=== PATIENT | female | born 1955 | race Caucasian/White ===

== ENCOUNTER → 2018-03-06 10:47 | Outpatient (CLI) | payer MEDICARE, OTHER, SELFPAY ==
--- NOTE | 2018-03-06 10:52 | CA_ITS ---
PROCEDURE: 2-D M-mode and color Doppler study INDICATIONS FOR THE TEST: Chest pain COPD Heart MurmurX Tobacco Smoking Palpitations Fatigue Syncope Edema HypertensionXDiabetes Mellitus Rheumatic Fever SOB GIMENEZ Obesity Hyperlipidemia Family History HD Additional History LIMITED STUDY PT UNABLE TO LAY ON L SIDE FOR EXAM PATIENT INFORMATION HEIGHT: 70 WEIGHT:203 GENDER: Female B/P:126/80 2-D/M-MODE INTERPRETATION: 2-D MEASUREMENTS OBSERVED VALUES IN CMS Right Ventricular Dimension (RVDd) 1.0 Interventricular Septum (Thickness)(IVsd) 2.2 Left Ventricular Internal Dimensions(LVIDd) 3.1 Left Ventricular Posterior Wall (Thickness)(LVPWd) 1.7 Aortic Root 3.0 Aortic Cusp Separation 1.3 Left Atrial Dimensions (LAD) 2.3 2D 1. Technically difficult study because of the patient's factor and poor acoustic windows 2. The left atrium is mildly enlarged, left ventricle is normal size, there is mild concentric left ventricular hypertrophy, visually estimated ejection fraction 60-65% with no obvious regional wall motion abnormality. 3. The right atrium and right ventricle are normal size and contractility. 4. The aortic valve is minimally thickened and fibrosed. 5. The mitral and tricuspid valve acoustic normal. 6. No significant pericardial effusion noted. DOPPLER INTERROGATION: Doppler interrogation of the aortic, mitral and tricuspid valvular presence of mild mitral and tricuspid regurgitation, tricuspid and jet velocity insufficient for calculation of the right ventricular systolic pressure, diastolic parameters are inconclusive. CONCLUSION: 1. Normal left ventricular size, preserved left ventricular systolic function, visually estimated ejection fraction of 60-65% with no obvious regional wall motion abnormality, diastolic parameters are inconclusive. 2. Mild mitral and tricuspid regurgitation 3. No significant pericardial effusion noted.
== END ==
PROVIDERS: Family Provider Family Medicine; PCP Family Medicine; Visit Provider Family Medicine
DX: R01.1 Cardiac murmur, unspecified (principal)
CPT/HCPCS: 93306

== ENCOUNTER → 2020-05-27 16:09 | Outpatient (CLI) | payer MEDICARE, MEDICAID, SELFPAY | PROVIDERS: Visit Provider Urology | DX: N30.10 Interstitial cystitis (chronic) without hematuria (principal) | CPT/HCPCS: 87086 ==

== ENCOUNTER → 2020-06-06 11:00 | Outpatient (CLI) | payer MEDICARE, MEDICAID, SELFPAY ==
[2020-06-06 14:24] LABS: Coronavirus 19 IgG Antibody Negative (Negative); Coronavirus 19 IgM Antibody Negative (Negative)
== END ==
PROVIDERS: Visit Provider Urology
DX: R32 Unspecified urinary incontinence (principal); Z01.818 Encounter for other preprocedural examination
CPT/HCPCS: 36415; 86328

== ENCOUNTER 2020-06-09 07:38 | Day surgery (SDC) | payer MEDICARE, MEDICAID, SELFPAY ==
[2020-06-04 14:04] VITALS: BMI 35.7
[2020-06-09] VITALS (12 sets, daily range): BP systolic 135–148; BP diastolic 55–98; PULSE 73–95; RESP 16–19; TEMP 36.4–36.6; O2SAT 92–97
--- NOTE | 2020-06-09 08:32 | P.PN_ITS ---
[facility] Anesthesia Checklist - Patient Identification Patient Identification: Arm Band - Structural Data Admitted From: Home Planned Operative Procedure/s: cystoscopy, removal of interstim Consent for Planned Operative Procedure(s) Verified: Yes Verified Documents: Surgical Consent, History and Physical - NPO Status Verified Time NPO: 00:00 - Additional verifications Anesthesia Reactions: No Hx Blood Transfusions: No - Airway Assessment C-Spine Mobility Assessed: Yes (mp2) TMJ Mobility Assessed: Yes Dentition: Poor Dentition - Neurological Assessment Level of Consciousness: Awake, Alert - Anesthesia Plan Anesthesia Risk discussed: Yes Anesthesia Plan: Verified ASA Class: III Anesthesia Type: General [facility] History I have reviewed the patient's past medical history: Yes Medical History: Reports:: Hypertension Denies:: Cancer, Diabetes Mellitus Type 1, Diabetes Mellitus Type 2, Internal Pacemaker, MRSA, Seizures *Have you ever received a pneumonia vaccine?: Yes *Have you received a flu vaccine this season?: Yes Other Medical History: Reports: Arthritis Anesthesia experience/problems:: nac Laterality Cases: Left: Total Knee Replacement, Right: Total Hip Replacement, Other Other Surgeries: No: Pacemaker Amputation: No Fractures: No - *Social History Last grade of school completed: High school graduate Smoking Status: Current every day smoker Tobacco Type: cigarettes # Packs/Day (cigarettes): 1 Alcohol Intake: never Substance Use Type: denies use, former substance user (Patient states that 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
[2020-06-09 08:39] LABS: Basophils # 0.1 K/mm3 (0-0.2); Basophils % 0.9 % (0.1-2.0); Eosinophils # 0.2 K/mm3 (0.0-0.4); Eosinophils % 2.8 % (0.1-12.0); Hematocrit 38.8 % (37.0-47.0); Hemoglobin 13.4 g/dL (12.2-16.2); Lymphocytes # 1.8 K/mm3 (0.7-4.5); Lymphocytes % 20.7 % (10-50); Mean Corpuscular HGB Conc 34.6 g/dL (31.8-35.4); Mean Corpuscular Hemoglobin 29.6 pg (27.0-31.2); Mean Corpuscular Volume 85.5 fl (81-99); Mean Platelet Volume 7.9 fl (7.4-10.4); Monocytes # 0.5 K/mm3 (0.1-1.0); Monocytes % 6.1 % (1.7-9.3); Neutrophils % 69.5 % (37.0-80.0); Platelet Count 197 K/mm3 (142-424); Red Blood Count 4.54 M/mm3 (4.20-5.40); Red Cell Distribution Width 14.4 % (11.5-17.5); White Blood Count 8.6 K/mm3 (4.8-10.8)
[2020-06-09 08:42] LABS: Chloride 99 mmol/L (98-107); Potassium 3.8 mmoL/L (3.5-5.1); Sodium 138 mmol/L (136-145)
[2020-06-09 08:45] LABS: Anion Gap 10.8 mEq/L (5-15); Blood Urea Nitrogen 13 mg/dl (7-17); Calcium 9.3 mg/dl (8.4-10.2); Carbon Dioxide 32 mmol/L (22.0-30.0); Creatinine Clearance Estimated 97 mL/min (50-200); Estimated Glomerular Filt Rate 84 ml/min (>60); GFR (African American) 102 ML/MIN (>60); Glucose 97 mg/dl (74-100)
--- NOTE | 2020-06-09 10:42 | HMH.ANESI ---
[facility] Anesthesia Record Part I Intake, IV Amount: 1,200 Estimated blood loss (mL): 10 Urine output (mL): 0 Blood Pressure: 135/61 SaO2: 92 Pulse Rate: 95 Respiratory Rate: 16 Temperature: 97.5 F Patient is:: Drowsy, Stable Stable to PACU at:: 10:40
--- NOTE | 2020-06-09 16:56 | P.PN_ITS ---
[facility] Anesthesia Record Part II Discharge Time: 11:15 Destination: Surgical Day Care (OP Surgery) PACU nurse assessment reviewed?: Yes Patient Condition:: Good Anesthesia Complications:: None Swallowing reflex intact?: Yes Cyanosis?: No Blood Pressure: 138/82 Pulse Rate: 76 Temperature: 97.5 F Mental Status: Alert & Oriented Pain level:: 0 Nausea and/or vomitting:: None Intake, IV Amount: 0
--- NOTE | 2020-06-09 17:12 | HMH.OPNOTE ---
Date of procedure: 06/09/20 Pre-op Diagnosis:: Interstitial cystitis Post-op Diagnosis:: Same Procedure performed:: Removal of InterStim generator and lead/cystoscopy with hydrodistention and urethral dilation Surgeon:: Paresh Campbell MD BATTERY REPAIRER:: Cristobal Townsend Anesthesia: GETA Estimated blood loss (mL): 10 Clinical Note:: Patient is a 64-year-old white female with a history of interstitial cystitis. A InterStim generator was placed several years ago by Dr. Simons. The battery and the patient's buttock area he has turned so that it protrudes out through the skin and is uncomfortable for the patient. It is unlikely that is working due to the length of time it is been and and the battery has not been changed out. She is doing better with her interstitial cystitis symptoms and feels she does not need it any longer. She does have some urinary tract symptoms which have responded to hydrodistention and dilation in the past and she wishes to proceed with removal of the InterStim, hydrodistention and dilation. Operative findings:: Patient's bladder did show some mild mild petechial hemorrhage formation after distention of the bladder. Her bladder capacity was 475 cc. The InterStim battery and lead were removed without complication. Operative note:: Patient taken to the operating room after informed consent was obtained. She is placed on the operating table in the supine position and general anesthesia administered. Preoperative antibiotics and sequential compression devices were placed. She does have a history of some hip surgery and her legs were gently placed into the low lithotomy position. She was then prepped and draped in the standard surgical fashion. The 22 Segundo passed into the urethra and into the bladder without difficulty. The bladder was examined in a systematic fashion. There is no evidence of mucosal normalities stones diverticula or trabeculation. The bladder was emptied and then under gravity seal with the fluid bag hanging about 62 cm above her abdomen fluid was allowed to fill the bladder. After backflow was encountered fluid was turned off and the bladder emptied. After the first instillation there was 400 cc of fluid obtained. We looked back in the bladder with the cystoscope and saw some mild petechial hemorrhage along the floor the bladder. The bladder was again distended under gravity seal and 450 cc were obtained after the second feel. We looked back in the third time and again some additional petechial hemorrhages were noted. The bladder was filled the third time under gravity and this time a 500 cc capacity was obtained. The scope removed and the urethra was then dilated with 2426 and 28 Bengali sounds. Urojet placed into the urethra. The patient then placed on a second OR table in the prone position and padded appropriately with her arms in the swimmer's position. She was secured to the table and prepped and draped in the standard surgical fashion along her lower back. The battery was very protruded against the skin and local anesthetic placed in and around the battery. An incision was made over the edge of the battery and the battery was removed very easily. A clamp was placed across the lead connecting the wire to the battery and tugging on the lead created a little dimple in the midline. An incision was made over the midline and we had dissected down and used a right angle to secure the wire across the midline. The wire was then cut at the battery site and the battery removed. The wire was then used to tag up on the tines in the sacral foramen and they came out without difficulty. Examination of the leads showed that the leads were all intact on the wire. The wounds were then irrigated with antibiotic solution and hemostasis achieved and the wounds were closed with a 3-0 Vicryl along the fascial edge and the skin closed with a running subcuticular 4-0 chromic. Dermabond was applied to the incision afterwa
== END 2020-06-09 12:05 | disposition home or self-care (01) ==
LOC: OR 07:40
PROVIDERS: PCP Family Medicine; Visit Provider Urology
PROC: 0TJB8ZZ Inspection of Bladder, Via Natural or Artificial Opening Endoscopic (ICD-10-PCS; CPT 52000; principal; 2020-06-09 09:00)
DX: T85.9XXA Unspecified complication of internal prosthetic device, implant and graft, initial encounter; N32.89 Other specified disorders of bladder; N30.10 Interstitial cystitis (chronic) without hematuria; Z96.0 Presence of urogenital implants; I10 Essential (primary) hypertension; Z96.652 Presence of left artificial knee joint; Z96.641 Presence of right artificial hip joint; Z72.0 Tobacco use; F19.11 Other psychoactive substance abuse, in remission; Z88.5 Allergy status to narcotic agent; Z88.8 Allergy status to other drugs, medicaments and biological substances; Z91.040 Latex allergy status
CPT/HCPCS: 52260; 64585; 64595; 80048; 85025; 96374; J2405; J2710

== ENCOUNTER → 2022-10-18 13:12 | Outpatient (CLI) | payer MEDICARE, MEDICAID, SELFPAY ==
--- NOTE | 2022-10-18 13:31 | XR_ITS ---
FINAL REPORT CLINICAL HISTORY: MID BACK PAIN..felt something pop on night FINDINGS: THORACIC SPINE Three views were obtained. There is no acute fracture. There is mild chronic wedging in the midthoracic spine. There is no malalignment. There are mild rate degenerative changes. There is no soft tissue abnormality. IMPRESSION: Moderate degenerative changes with mild chronic wedging in the midthoracic spine. No acute bony abnormality. Reviewed, Interpreted and Dictated by Trevon Chiu III, MD Transcribed by Magali Rivera Authenticated and [facility]
== END ==
PROVIDERS: PCP Family Medicine; Visit Provider Family Medicine
DX: M54.6 Pain in thoracic spine (principal)
CPT/HCPCS: 72072

== ENCOUNTER 2022-10-19 10:03 | Emergency (ER) | payer MEDICARE, MEDICAID, SELFPAY ==
[2022-10-19 10:04] VITALS: BP 151/72; PULSE 78; RESP 18; TEMP 36.7; O2SAT 97; BMI 29.5
[2022-10-19 10:31] VITALS: BP 146/70; PULSE 75; O2SAT 96
--- NOTE | 2022-10-19 10:47 | PC.NURSE ---
MU AGUILAR at for update on POC.
--- NOTE | 2022-10-19 11:06 | HMH.EDGENADL ---
Discharge Plan Disposition Patient Disposition: Home, Self-Care Condition: Fair Prescriptions Prescriptions: New hydrocodone-acetaminophen 5-325 mg tablet 1 tab PO Q6H PRN (Reason: pain) Qty: 10 0RF No Action gabapentin 800 mg tablet 800 mg PO DAILY baclofen 10 mg tablet 10 mg PO DAILY ibuprofen 800 mg tablet 800 mg PO TID loratadine 10 mg tablet 10 mg PO DAILY albuterol sulfate 90 mcg/actuation HFA aerosol inhaler 90 mcg INHALATION DAILY hydrochlorothiazide 25 mg tablet 25 mg PO DAILY ergocalciferol (vitamin D2) 1,250 mcg (50,000 unit) capsule 1,250 mcg PO DAILY furosemide 40 mg tablet 40 mg PO metolazone 2.5 mg tablet 2.5 mg PO trazodone 150 mg tablet 150 mg PO HS lisinopril 20 mg tablet 20 mg PO ONCE potassium chloride 10 MEQ tablet extended release 10 meq PO BID Referrals Follow up/Referrals: Ca Chaparro [Primary Care Provider] - See instructions Activity Restrictions/Add. Instructions Additional Instructions/Restrictions: Laurens as needed for pain. A short-term prescription is all that can be provided through the emergency department, for any further prescriptions for pain medication, you will need to see your primary care provider. Additional instructions for BACK PAIN: See your physician as soon as possible for further evaluation. Return immediately if back pain becomes intolerable, or if fever, numbness or weakness of your legs, loss of control of your bowels or bladder. Additional instructions for CONTROLLED SUBSTANCES: You have been prescribed a medication that is a controlled substance. Controlled substances include pain medications known as opiates and sedative nerve medications known as benzodiazepines. Tramadol, fioricet, and gabapentin are also controlled substances. Some common opiates include: Codeine (such as Tylenol #3) Hydrocodone (Vicodin, Lortab, Lorcet, Laurens) Oxycodone (Percocet, Percodan, Oxycodone, Oxy IR) Some common benzodiazepines include: Diazepam (Valium) Lorazepam (Ativan) Alprazolam (Xanax) Clonazepam (Klonopin) Oxazepam (Serax) All of these controlled substances are highly addictive and frequently abused. Misuse can and frequently does lead to addiction as well as overdose and . Medication should be stored in a locked cabinet or other secure storage unit. Do not store the medication in a motor vehicle. Short term supplies, 3 days or less, are prescribed because of the highly addictive nature of the medication. Any of the controlled substance medication NOT taken should be disposed of properly and NOT SAVED. The recommended method of disposing of unused medications is: Place the medicines in a sealable plastic bag. If the medicine is a solid, crush it or add water to dissolve it. Add something undesirable (cat litter, coffee grounds, etc.) Dispose of sealed bag in household trash Do not flush or pour unused medicines down a sink or drain. Controlled substances should not be shared, given away or sold. Because of the addictive nature and frequent abuse, these medications are sometimes stolen. These medications should be kept in a safe place where they cannot be stolen. Do not keep them in your car or purse. Lost or stolen prescriptions for controlled substances WILL NOT BE REFILLED in this emergency department, regardless of whether a police report was filed. Clinical Impressions Clinical Impression: Acute thoracic back pain Instructions Patient Instructions: DI for Thoracic Back Pain Discharge ED Provider: Johnnie Santos General Adult [facility] General Chief complaint: Back Pain/Injury Stated complaint: Back pain, no accident Time Seen by Provider: 10/19/22 10:39 Mode of Arrival: Wheelchair Source of Information: Patient Limitations: No Limitations Description of Symptoms (Recalled from ER Triage Doc. by RN): Pt c/o back pain, reports pain is in
[2022-10-19 12:05] VITALS: BP 127/65; PULSE 67; RESP 18; TEMP 36.8; O2SAT 96
== END 2022-10-19 12:08 | disposition home or self-care (01) ==
PROVIDERS: Emergency Provider Emergency Medicine; PCP Family Medicine
DX: M54.6 Pain in thoracic spine (principal)
CPT/HCPCS: 96372; 99283; J2405

== ENCOUNTER → 2022-12-28 07:04 | Outpatient (CLI) | payer MEDICARE, MEDICAID, SELFPAY ==
--- NOTE | 2022-12-28 07:13 | CT_ITS ---
FINAL REPORT CLINICAL HISTORY: THORACIC PAIN FINDINGS: Axial CT images of the thoracic spine were obtained without contrast. Sagittal and coronal reformatted images were also obtained. This study was performed with techniques to keep radiation doses as low as reasonably achievable (ALARA). Individualized dose reduction techniques using automated exposure control or adjustment of mA and/or kV according to the patient's size were employed. There is moderate to severe T7 compression fracture with 70% loss of anterior height of uncertain age. The bones are osteopenic. There is diffuse degenerative disease with multilevel osteophytes. There is no significant canal stenosis. IMPRESSION: Moderate to severe T7 compression fracture of uncertain age. Degenerative and chronic appearing findings. Reviewed, Interpreted and Dictated by Trevon Chiu III, MD Transcribed by Judith Maria Authenticated and [facility]
== END ==
PROVIDERS: PCP Family Medicine; Visit Provider Orthopaedic Surgery Adult Reconstructive Orthopaedic Surgery
DX: M54.6 Pain in thoracic spine (principal)
CPT/HCPCS: 72128